=== PATIENT | female | born 1950 | race Caucasian/White ===

== ENCOUNTER 2016-12-07 10:35 | Day surgery (SDC) | payer MEDICARE, OTHER ==
[~2016-12-07 10:35] MED LIST: Bacitracin Oint 1 GM U/D Packet ONE; Bupivacaine 0.5% 30 ML SDV ONE; Lidocaine 2% 20 ML MDV ONE
[2016-12-07] MEDS ORDERED: Lactated Ringers 1,000 ML IV SCH (11:00)
[2016-12-07] MEDS ORDERED: ceFAZolin 2 GM in Sodium Chloride 0.9% 50 ML IV ONE (12:00)
[2016-12-07] MEDS ORDERED: ceFAZolin 2 GM in Premix Bag 1 BAG IV ONE (12:00)
[2016-12-07] MEDS ORDERED: Propofol 200 MG/20 ML SDV ONE (12:12)
[2016-12-07] MEDS ORDERED: fentaNYL 100 MCG/2 ML SDV ONE ×2 (12:13→13:09)
[2016-12-07] MEDS ORDERED: Midazolam 1 MG/ML 2 ML SDV ONE ×2 (12:13→12:51)
[2016-12-07 15:26] VITALS: BP 144/68
--- NOTE | 2016-12-07 21:35 | OR ---
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 PROCEDURE: Arthrodesis left 1st metatarsophalangeal joint. ANESTHESIA: Local with IV sedation. HEMOSTASIS: Obtained with an ankle tourniquet on the left ankle at 250 mmHg. ESTIMATED BLOOD LOSS: 5 mL. MATERIALS: One short left-sided Arthrex 1st MPJ fusion plate was used, one 3.0 mm cannulated screw was used 26 mm in length, and four 3.0 mm locking screws were used and one 3.0 mm nonlocking screw was used. INJECTABLES: 20 mL of Marcaine 0.5% plain were injected preoperatively. PATHOLOGY: None. CONDITION: Stable. INDICATIONS FOR SURGERY: Painful arthritic bunion, left foot that was unresponsive to conservative measures. PROCEDURE IN DETAIL: The patient was brought into the operating room, placed on the operating table in supine position. Following IV sedation, anesthesia was obtained with a total of 20 mL of Marcaine 0.5% plain. The left foot was scrubbed, prepped, and draped in the usual aseptic manner, raised to 60 degrees for hemostasis and exsanguinated using Esmarch bandage. Tourniquet was inflated. Foot was lowered to the table and skin incision was made on dorsal medial aspect of the left 1st metatarsophalangeal joint. Incisions were deepened through subcutaneous tissues with care taken to identify and retract all vital neurovascular structures. Following subcutaneous dissection, a T-type incision was made into the 1st metatarsophalangeal joint capsule of the left foot. The capsule was carefully dissected off the 1st metatarsal head and the base of the proximal phalanx and then the sagittal saw was used to remove the medial eminence on the 1st metatarsal head and also the dorsal eminence on the 1st metatarsal head. It was noted that there was approximately 25% of articular cartilage missing from the 1st metatarsal head, so the Arthrex reamers were then used to remove the remaining cartilage in the subchondral plate both on the 1st metatarsal and the base of the proximal phalanx and then 0.062 K-wire was used to fenestrate the 1st metatarsal head and the base of the proximal phalanx. They were approximated and then fixated with a plate and 3.0 mm cannulated screw was used for the 1st fixation with the plate only fixated in the proximal end. The position of the great toe was checked fluoroscopically and then anatomically and found to be anatomic, so then the rest of the screws were placed in the plate and incision was flushed out with copious amounts of sterile saline. Capsular closure was done with 3-0 Vicryl, subcutaneous closure with 3-0 Vicryl, and skin closure with 4-0 nylon. Foot was dressed with Xeroform, 4x4s, Kerlix, Coban. The patient was returned to the recovery room with vital signs stable and vascular status intact to both feet. The patient was told to return to clinic for followup in one week at which time, she will be re-evaluated, maintain strict nonweightbearing, keep dressings clean, dry, and intact and go to the emergency room immediately if she has any nausea, vomiting, fever, chills, chest pain, calf pain, or difficulty breathing. The patient was agreeable to this. The patient was also placed on Percocet 5/325 one tab p.o. q.4-6 hours p.r.n. pain and Vistaril 25 mg one tab p.o. q.8 hours p.r.n. pain, dispensed #30. Jovon Hollis DPM /[id number]
== END 2016-12-07 15:25 | disposition home or self-care (01) ==
LOC: JP.SDS 10:35
PROVIDERS: ATTEND Podiatrist Foot & Ankle Surgery
DX: M21.612 Bunion of left foot (principal); I10 Essential (primary) hypertension; E78.00 Pure hypercholesterolemia, unspecified; J44.9 Chronic obstructive pulmonary disease, unspecified; F17.210 Nicotine dependence, cigarettes, uncomplicated; Z88.8 Allergy status to other drugs, medicaments and biological substances; Z98.890 Other specified postprocedural states; Z90.710 Acquired absence of both cervix and uterus; Z79.82 Long term (current) use of aspirin; Z79.899 Other long term (current) drug therapy
CPT/HCPCS: 28750; 76000; C1713; J0690; J2250; J2704; J3010; J7050; J7120; C1776

== ENCOUNTER 2019-07-18 08:14 | Day surgery (SDC) | payer MEDICARE, OTHER ==
[2019-07-18] MEDS ORDERED: Sodium Chloride 0.9% 1,000 ML IV SCH (08:45)
[2019-07-18] MEDS ORDERED: Midazolam 1 MG/ML 2 ML SDV ONE (08:54)
[2019-07-18] MEDS ORDERED: Propofol 200 MG/20 ML SDV ONE ×2 (08:54→11:09)
[2019-07-18] MEDS ORDERED: fentaNYL 100 MCG/2 ML SDV ONE (08:54)
[2019-07-18 11:26] VITALS: PULSE 64
[2019-07-18 12:13] VITALS: BP 144/63
--- NOTE | 2019-07-18 15:00 | PROC ---
DATE OF PROCEDURE: 07/18/2019 SURGEON: Gee Trimble MD PROCEDURE: Colonoscopy. PREPROCEDURE DIAGNOSIS: History of colon polyps. POSTPROCEDURE DIAGNOSES: 1. History of colon polyps. 2. Normal colonoscopy. DESCRIPTION OF PROCEDURE: Risks and goals of procedure reviewed with the patient. She gave informed consent to proceed. She was brought back to the endoscopy room. Sedation and monitoring provided by Viet Palacios from the Anesthesia Service. A time-out was held prior to the procedure to confirm right site, right patient, and right procedure, also to identify any potential concerns regarding the procedure, of which there were none. She was placed in a left lateral decubitus position. After adequate sedation was achieved, digital rectal exam was performed, which was unremarkable. Following this, flexible colonoscope was placed and advanced out through the colon to the cecum. The cecum was identified based on the appendiceal orifice and ileocecal valve. Scope was then slowly withdrawn through the entire length of the colon to the rectum where it was retroflexed, straightened, and removed. There were no significant mucosal polyps, masses, or lesions seen, and the procedure was, otherwise, completed without complication. She will be monitored in PAR in outpatient area until fully recovered from IV sedation and discharged to home. Gee Trimble MD /[id number]
== END 2019-07-18 12:26 | disposition home or self-care (01) ==
LOC: JP.SDS 08:14
PROVIDERS: ATTEND Hospitalist
DX: Z12.11 Encounter for screening for malignant neoplasm of colon (principal); I10 Essential (primary) hypertension; E78.5 Hyperlipidemia, unspecified; J44.9 Chronic obstructive pulmonary disease, unspecified; F17.200 Nicotine dependence, unspecified, uncomplicated; Z86.010 Personal history of colon polyps
CPT/HCPCS: G0121; J2250; J2704; J3010; J7030

== ENCOUNTER 2021-03-28 15:32 | Emergency (ER) | payer MEDICARE, OTHER ==
[2021-03-28 17:15] LABS: CORONAVIRUS COVID-19 NAA NEGATIVE (NEGATIVE)
[2021-03-28] MEDS ORDERED: Albuterol/Ipratropium 3.0-0.5 MG/3 ML Neb Soln NEB ONE (18:09)
--- NOTE | 2021-03-28 18:14 | EDM.PDOC ---
ED HPI GENERAL MEDICAL PROBLEM - General Chief Complaint: Respiratory Problem Stated Complaint: CHEST HURTS, COUGH Time Seen by Provider: 03/28/21 18:01 Source of Information: Reports: Patient, Family () History Limitations: Reports: No Limitations - History of Present Illness INITIAL COMMENTS - FREE TEXT/NARRATIVE: Jackie is a 70-year-old female presenting to the ED for evaluation of chills, cough, shortness of breath that started several days ago. Patient reports that she had fever and chills on Wednesday night (2 days ago and started to experience some shortness of breath. The cough has been loose but minimally productive. Patient does smoke 1 pack/day and has a [id number] history of smoking. She has been vaccinated for Covid and for pneumonia with the P neumovax. She does not report having a fever now but she is flushed and feels very warm stating that the room is hot. - Related Data Allergies Allergy/AdvReac Type Severity Reaction Status Date / Time hydroxyzine Allergy Nausea Verified 03/28/21 16:47 tramadol Allergy Nausea Verified 03/28/21 16:47 hydrocodone AdvReac Vomiting Verified 03/28/21 16:47 Home Meds: Home Meds Aspirin 162.5 mg PO DAILY 07/02/16 [History] Calcium Carbonate [Calcium] 600 mg PO DAILY 07/02/16 [History] Lovastatin [Mevacor] 20 mg PO DAILY 07/02/16 [History] Triamterene/Hydrochlorothiazid [Triamterene-HCTZ 37.5-25 MG] 1.5 cap PO DAILY 07/02/16 [History] dilTIAZem HCL [Diltiazem ER] 180 mg PO DAILY 07/02/16 [History] Past Medical History HEENT History: Reports: Cataract, Impaired Vision Cardiovascular History: Reports: High Cholesterol, Hypertension Respiratory History: Reports: Bronchitis, Recurrent, Pneumonia, Recurrent Gastrointestinal History: Reports: Colon Polyp Genitourinary History: Reports: None 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: Musculoskeletal History: Reports: Arthritis, Other (See Below) Other Musculoskeletal History: arthritis left 1st metatarsophalangeal join, bunion deformity left foot Neurological History: Reports: None Psychiatric History: Reports: None Endocrine/Metabolic History: Reports: None Hematologic History: Reports: None Oncologic (Cancer) History: Reports: None Dermatologic History: Reports: Psoriasis, Other (See Below) Other Dermatologic History: lesion removed from nose - Infectious Disease History Infectious Disease History: Reports: Chicken Pox - Past Surgical History Head Surgeries/Procedures: Reports: None HEENT Surgical History: Reports: Oral Surgery, Tonsillectomy Cardiovascular Surgical History: Reports: None Respiratory Surgical History: Reports: None GI Surgical History: Reports: Colonoscopy Female Surgical History: Reports: Breast Biopsy, D&C, Hysterectomy, Salpingo-Oophorectomy Musculoskeletal Surgical History: Reports: Carpal Tunnel, Other (See Below) Other Musculoskeletal Surgeries/Procedures:: left thumb surgery trigger thumb Oncologic Surgical History: Reports: Biopsy of Breast Dermatological Surgical History: Reports: None Social & Family History - Family History Family Medical History: No Pertinent Family History - Tobacco Use Tobacco Use Status *Q: Current Every Day Tobacco User Years of Tobacco use: 54 Packs/Tins Daily: 0.5 - Caffeine Use Caffeine Use: Reports: Soda - Recreational Drug Use Recreational Drug Use: No ED ROS GENERAL - Review of Systems Review Of Systems: See Below Constitutional: Reports: Chills HEENT: Reports: No Symptoms Respiratory: Reports: Shortness of Breath, Wheezing, Cough, Sputum Cardiovascular: Reports: Chest Pain (Chest heaviness) Endocrine: Reports: No Symptoms GI/Abdominal: Reports: No Symptoms : Reports: No Symptoms Musculoskeletal: Reports: No Symptoms Skin: Reports: No Symptoms Neurological: Reports: No Symptoms Psychiatric: Reports: Anxiety Hematologic/Lymphatic: Reports: No Symptoms Immunologic: Reports: No Symptoms ED EXAM, GENERAL - Physical Exam Exam: See Below Exam Limited By: No Limitations General Appearance: Anxious, Moderate Distress Eye Exam: Left Eye: EOMI, PERRL Nose: Normal Inspection, Normal Mucosa Throat/Mouth: Normal Inspection, Normal Oropharynx, Normal Voice, No Airway Compromise Head: Atraumatic, Normocephalic Neck: Normal Inspection, Supple. No: Lymphadenopathy (R), Lymphadenopathy (L) Respiratory/Chest: No Accessory Muscle Use, Decreased Breath Sounds (Maia diminished breath sounds in the bases), Wheezing (Inspiratory and expiratory wheezes), Other (Tachypnea) Cardiovascular: Normal Peripheral Pulses, Regular Rate, Rhythm, No Murmur Peripheral Pulses: 2+: Radial (L), Radial (R) GI/Abdominal: Normal Bowel Sounds, Soft, Non-Tender. No: Guarding, Rebound Back Exam: Normal Inspection, Full Range of Motion Extremities: Normal Inspection, Normal Range of Motion Neurological: Alert, Oriented, Normal Cognition, No Motor/Sensory Deficits Psychiatric: Anxious Skin Exam: Warm, Dry, Intact, No Rash, Pallor Course - Vital Signs Last Recorded V/S: Last Vital Signs Temp 36.6 C 03/28/21 16:43 Pulse 89 03/28/21 16:43 Resp 18 03/28/21 16:43 BP 165/85 H 03/28/21 16:43 Pulse Ox 93 L 03/28/21 16:43 - Orders/Labs/Meds Orders: Active Orders 24 hr Category Date Time Status RT Aerosol Therapy [RC] ASDIRECTED Care 03/28/21 18:09 Active Chest 2V [CR] Stat Exams 03/28/21 18:03 Taken Isolation [COMM] Stat Oth 03/28/21 16:05 Ordered Labs: Laboratory Tests 03/28/21 03/28/21 03/28/21 Range/Units 16:33 18:20 18:20 WBC 15.4 H (4.5-11.0) K/uL RBC 4.18 (3.30-5.50) M/uL Hgb 13.8 (12.0-15.0) g/dL Hct 40.7 (36.0-48.0) % MCV 97 (80-98) fL MCH 33 H (27-31) pg MCHC 34 (32-36) % Plt Count 303 (150-400) K/uL Neut % (Auto) 80.9 H (36-66) % Lymph % (Auto) 10.5 L (24-44) % [place] % (Auto) 8.3 H (2-6) % Eos % (Auto) 0.1 L (2-4) % Baso % (Auto) 0.2 (0-1) % Sodium 133 L (140-148) mmol/L Potassium 2.9 L* (3.6-5.2) mmol/L Chloride 91 L (100-108) mmol/L Carbon Dioxide 28 (21-32) mmol/L Anion Gap 16.9 H (5.0-14.0) mmol/L BUN 11 (7-18) mg/dL Creatinine 0.8 (0.6-1.0) mg/dL Est Cr Clr Drug Dosing 46.19 mL/min Estimated GFR (MDRD) > 60 (>60) Glucose 114 H (74-106) mg/dL Calcium 9.8 (8.5-10.1) mg/dL Total Bilirubin 0.4 (0.2-1.0) mg/dL AST 16 (15-37) U/L ALT 16 (12-78) U/L Alkaline Phosphatase 89 (46-116) U/L C-Reactive Protein 21.81 H (0.0-0.3) mg/dL Total Protein 7.8 (6.4-8.2) g/dL Albumin 3.7 (3.4-5.0) g/dL Globulin 4.1 H (2.3-3.5) g/dL Albumin/Globulin Ratio 0.9 L (1.2-2.2) Influenza Type A RNA Negative (NEGATIVE) RSV RNA (INAAT) Negative (NEGATIVE) Influenza Type B RNA Negative (NEGATIVE) SARS-CoV-2 RNA ([facility]) Negative (NEGATIVE) Meds: Medications Discontinued Medications Generic Name Dose Route Start Last Admin Trade Name Freq PRN Reason Stop Dose Admin Albuterol/Ipratropium 3 ml 03/28/21 18:09 Albuterol/Ipratropium 3.0-0.5 Mg/3 Ml Neb Soln NEB 03/28/21 18:10 ONETIME ONE Potassium Chloride 40 meq 03/28/21 19:05 Potassium Chloride 20 Meq Tab.Er PO 03/28/21 19:06 ONETIME ONE - Radiology Interpretation Free Text/Narrative:: I reviewed the chest x-ray showing hyperinflation with flattening of the diaphragms. There are no evidence for acute infiltrates or hilar adenopathy. - Re-Assessments/Exams Free Text/Narrative Re-Assessment/Exam: 03/28/21 19:42 I reviewed the patient's labs showing a leukocyte count of 15.4, hemoglobin of 13.8, hematocrit of 40.7 and a platelet count of 303,000. The patient's comprehensive metabolic panel shows sodium 133, potassium 2.9, chloride of 91, bicarbonate of 28, BUN of 11 with a creatinine of 0.8 and a glucose of 114. The remainder of the comprehensive panel was unremarkable. Patient was given potassium 40 mEq by mouth for the hypokalemia. Her C-reactive protein is 21.81. She is Covid negative influenza negative and RSV negative. Her symptoms are consistent with an acute on chronic bronchitis. We will treat her with azithromycin Z-Drake, and albuterol inhaler, and a 12-day prednisone taper. Indications return to the ED were discussed. All questions were answered and she was discharged in satisfactory condition. Departure - Departure Time of Disposition: 19:36 Disposition: Home, Self-Care 01 Clinical Impression: Acute exacerbation of chronic bronchitis, Tobacco abuse COPD (chronic obstructive pulmonary disease) Qualifiers: COPD type: chronic bronchitis Chronic bronchitis type: unspecified Qualified Code(s): J42 - Unspecified chronic bronchitis - Discharge Information Instructions: Chronic Obstructive Pulmonary Disease, [id number], Acute Bronchitis, Adult, [id number] Referrals: Sharath Bhakta MD [Primary Care Provider] - Forms: ED Department Discharge Care Plan Goals: Your work-up today has shown that you have a recurrence of your chronic bronchitis causing inflammation of your airways and making it more difficult for you to breathe we are going to put you on azithromycin Z-Drake. Please take as directed. I am also prescribing you a 12-day prednisone taper to reduce inflammation in the airways and an albuterol inhaler. These all been sent out to the [facility] machine so you may start them tonight. Sepsis Event Note (ED) - Focused Exam Vital Signs: Vital Signs Temp Pulse Resp BP Pulse Ox 03/28/21 16:43 36.6 C 89 18 165/85 H 93 L 03/28/21 16:33 36.6 C 89 18 165/85 H 93 L - Problem List & Annotations (1) Acute exacerbation of chronic bronchitis SNOMED Code(s): 749038821 Code(s): J20.9 - ACUTE BRONCHITIS, UNSPECIFIED; J42 - UNSPECIFIED CHRONIC BRONCHITIS Status: Acute Priority: High Current Visit: Yes (2) COPD (chronic obstructive pulmonary disease) SNOMED Code(s): 15939009 Code(s): J44.9 - CHRONIC OBSTRUCTIVE PULMONARY DISEASE, UNSPECIFIED Status: Acute Priority: High Current Visit: Yes Qualifiers: COPD type: chronic bronchitis Chronic bronchitis type: unspecified Qualified Code(s): J42 - Unspecified chronic bronchitis (3) Tobacco abuse SNOMED Code(s): 641104197 Code(s): Z72.0 - TOBACCO USE Status: Acute Priority: High Current Visit: Yes - Problem List Review Problem List Initiated/Reviewed/Updated: Yes - My Orders Last 24 Hours: My Active Orders 03/28/21 18:03 Chest 2V [CR] Stat 03/28/21 18:09 RT Aerosol Therapy [RC] ASDIRECTED - Assessment/Plan Last 24 Hours: My Active Orders 03/28/21 18:03 Chest 2V [CR] Stat 03/28/21 18:09 RT Aerosol Therapy [RC] ASDIRECTED
[2021-03-28] MEDS ORDERED: Potassium Chloride 20 MEQ Tab.ER PO ONE (19:05)
[2021-03-28 19:39] VITALS: BP 139/79; PULSE 91
--- NOTE | 2021-03-31 09:32 | CR ---
CHEST: 2 view CLINICAL HISTORY:Cough COMPARISON:None FINDINGS: The heart size, pulmonary vascularity and hilar structures are normal. No infiltrate effusion or pneumothorax is seen. Lungs are emphysematous IMPRESSION: No acute cardiopulmonary process. Emphysematous changes
== END 2021-03-28 20:03 | disposition home or self-care (01) ==
LOC: JP.ED 15:32
DX: J20.9 Acute bronchitis, unspecified (principal); J42 Unspecified chronic bronchitis; E78.00 Pure hypercholesterolemia, unspecified; I10 Essential (primary) hypertension; F17.200 Nicotine dependence, unspecified, uncomplicated; Z79.899 Other long term (current) drug therapy; Z88.5 Allergy status to narcotic agent; Z88.8 Allergy status to other drugs, medicaments and biological substances; Z79.82 Long term (current) use of aspirin; Z20.822 Contact with and (suspected) exposure to COVID-19
CPT/HCPCS: 0241U; 36415; 71046; 80053; 85025; 86140; 94640; 99285; A9270; J7620-GY

== ENCOUNTER 2021-08-14 09:12 | Day surgery (SDC) | payer MEDICARE, OTHER ==
[2021-08-14] MEDS ORDERED: Sodium Chloride 0.9% 10 ML Syringe FLUSH PRN (10:30)
[2021-08-14 10:40] VITALS: BP 154/84; PULSE 97
== END 2021-08-14 10:45 | disposition home or self-care (01) ==
LOC: JP.SDS 09:12
PROVIDERS: ATTEND Ophthalmology
DX: H25.11 Age-related nuclear cataract, right eye (principal)

== ENCOUNTER 2022-02-04 05:45 | Day surgery (SDC) | payer MEDICARE, OTHER ==
[2022-02-04] MEDS ORDERED: Nozin Nasal Sanitizer NASBOTH ONE (06:30)
[2022-02-04 06:43] LABS: ESTIMATED GFR 60 mL/min (>60)
[2022-02-04] MEDS ORDERED: Bupivacaine 0.5% 50 ML MDV ONE (06:47)
[2022-02-04] MEDS ORDERED: Lactated Ringers 1,000 ML IV SCH (07:00)
[2022-02-04] MEDS ORDERED: ceFAZolin 1 GM in Premix Bag 1 BAG IV ONE (07:30)
[2022-02-04] MEDS ORDERED: ceFAZolin 1 GM in Sodium Chloride 0.9% 50 ML IV ONE (07:30)
[2022-02-04] MEDS ORDERED: fentaNYL 100 MCG/2 ML SDV ONE (07:38)
[2022-02-04] MEDS ORDERED: Midazolam 1 MG/ML 2 ML SDV ONE (07:38)
[2022-02-04] MEDS ORDERED: Lidocaine 0.5% 50 ML SDV ONE (07:38)
[2022-02-04] MEDS ORDERED: Propofol 200 MG/20 ML SDV ONE (07:38)
[2022-02-04] MEDS ORDERED: Acetaminophen/Codeine 300-30 MG Tab PO ONE (09:45)
[2022-02-04 10:03] VITALS: BP 136/68; PULSE 64
== END 2022-02-04 10:24 | disposition home or self-care (01) ==
LOC: JP.SDS 05:45
PROVIDERS: ATTEND Specialist
DX: G56.01 Carpal tunnel syndrome, right upper limb (principal); I10 Essential (primary) hypertension; E78.5 Hyperlipidemia, unspecified; J44.9 Chronic obstructive pulmonary disease, unspecified; Z79.899 Other long term (current) drug therapy; Z88.5 Allergy status to narcotic agent; Z88.6 Allergy status to analgesic agent
CPT/HCPCS: 36415; 64721; 80053; 85027; A9270; J0690; J2250; J2704; J3010; J3490; J7120